=== PATIENT | female | born 1950 | race Caucasian/White ===

== ENCOUNTER → 2022-02-12 | Outpatient (CLI) | payer MEDICARE ==
[2022-02-14 11:05] LABS: Stool Occult Bld Immuno 1 Negative (NEGATIVE)
== END | disposition home or self-care (01) ==
LOC: LAB SHORT 15:30 → LAB 15:30
PROVIDERS: Internal Medicine
DX: D53.9 Nutritional anemia, unspecified (principal)
CPT/HCPCS: 82274

== ENCOUNTER → 2022-05-08 | Outpatient (CLI) | payer MEDICARE ==
[2022-05-08 18:50] LABS: Protein, Urine Random <5.0 mg/dL (0.0-11.9); Protein/Creat Ratio, Ur Random Unable to Calculate
== END ==
LOC: LAB SHORT 14:18 → LAB 14:18
PROVIDERS: Internal Medicine Nephrology
DX: N18.4 Chronic kidney disease, stage 4 (severe) (principal)
CPT/HCPCS: 82570; 84156

== ENCOUNTER → 2022-11-05 | Outpatient (CLI) | payer MEDICARE ==
[2022-11-07 14:43] LABS: Adenovirus F 40/41 Not Detected (NOT DETECT); Astrovirus Not Detected (NOT DETECT); Campylobacter Sp Not Detected (NOT DETECT); Cryptosporidium Not Detected (NOT DETECT); Cyclospora Cayetanensis Not Detected (NOT DETECT); E. Coli O157 Not Detected (NOT DETECT); Entamoeba Histolytica Not Detected (NOT DETECT); Enteroaggregative E. coli-EAEC Not Detected (NOT DETECT); Enteropathogenic E. coli-EPEC Not Detected (NOT DETECT); Enterotoxigenic E. coli-ETEC Not Detected (NOT DETECT); Giardia Lamblia Not Detected (NOT DETECT); Norovirus GI/GII Not Detected (NOT DETECT); Plesiomonas Shigelloides Not Detected (NOT DETECT); Rotavirus A Not Detected (NOT DETECT); Salmonella Sp Not Detected (NOT DETECT); Sapovirus Not Detected (NOT DETECT); Shiga Toxin-prod E. coli-STEC Not Detected (NOT DETECT); Shigella/Enteroin E. coli-EIEC Not Detected (NOT DETECT); Vibrio Cholerae Not Detected (NOT DETECT); Vibrio Sp Not Detected (NOT DETECT); Yersinia Enterocolitica Not Detected (NOT DETECT)
== END | disposition home or self-care (01) ==
LOC: LAB 08:30 → LAB SHORT 08:30
PROVIDERS: Family Medicine
DX: R19.7 Diarrhea, unspecified (principal)
CPT/HCPCS: 87507

== ENCOUNTER → 2023-01-14 | Outpatient (CLI) | payer MEDICARE ==
[2023-01-14 21:11] LABS: Protein, Urine Random 10.6 mg/dL (0.0-11.9)
[2023-01-14 21:12] LABS: Creatinine, Urine Random 73.8 mg/dL (27.00-270.00); Protein/Creat Ratio, Ur Random 0.1
== END | disposition home or self-care (01) ==
LOC: LAB 10:40 → LAB SHORT 10:40
PROVIDERS: Internal Medicine Nephrology
DX: N18.32 Chronic kidney disease, stage 3b (principal)
CPT/HCPCS: 82570; 84156

== ENCOUNTER 2023-01-26 10:17 | Emergency (ER) | payer MEDICARE ==
[~2023-01-26] VITALS: Ht 154.9 cm; Wt 77.1 kg
[2023-01-26] MEDS ORDERED: TRAM50 PO ×2 (11:00→11:01)
[2023-01-26] MEDS ORDERED: Cyclobenzaprine5 MG PO (11:00)
[2023-01-26 11:01] LABS: BASOPHILS ABSOLUTE AUTO 0.01 K/mm3 (0.00-0.23); BASOPHILS PERCENT AUTO 0 % (0-2); EOSINOPHILS ABSOLUTE AUTO 0.08 K/mm3 (0.00-0.68); EOSINOPHILS PERCENT AUTO 1 % (0-6); Hematocrit 30.7 % (33.0-51.0); Hemoglobin 10.5 g/dL (11.5-16.0); IMMATURE GRAN ABSOLUTE AUTO 0.01 K/mm3 (0.00-0.10); IMMATURE GRAN PERCENT AUTO 0 % (0-1); LYMPHOCYTES ABSOLUTE AUTO 1.83 K/mm3 (0.84-5.20); LYMPHOCYTES PERCENT AUTO 31 % (21-46); MONOCYTES ABSOLUTE AUTO 0.35 K/mm3 (0.16-1.47); MONOCYTES PERCENT AUTO 6 % (4-13); Mean Corpuscular HGB 31.6 pg (26.0-34.0); Mean Corpuscular HGB Conc 34.2 g/dL (31.5-36.5); Mean Corpuscular Volume 93 fL (80-100); Mean Platelet Volume 10.1 fL (9.1-12.4); NEUTROPHILS ABSOLUTE AUTO 3.58 K/mm3 (1.96-9.15); NEUTROPHILS PERCENT AUTO 61 % (41-73); Platelet Count 266 K/mm3 (150-400); RDW Coefficient Variation 12.3 % (11.7-14.2); RDW Standard Deviation 41.5 fL (35.1-46.3); Red Blood Cell Count 3.32 M/mm3 (3.80-5.20); White Blood Cell Count 5.86 K/mm3 (4.00-11.30)
[2023-01-26] MEDS ORDERED: AMLODIPINE BESYL5 MG PO (11:10)
[2023-01-26] MEDS ORDERED: METFORMIN HCL500 M3 PO (11:10)
[2023-01-26] MEDS ORDERED: VALSARTAN160 MG PO (11:11)
[2023-01-26] MEDS ORDERED: CHLO25B PO (11:11)
[2023-01-26 11:21] LABS: Albumin/Globulin Ratio 1.2 (0.8-1.8); Bilirubin, Total 0.3 mg/dL (0.1-1.0); Bun/Creatinine Ratio 24.6 (12.0-20.0); Calcium, Blood 9.2 mg/dL (8.5-10.1); Creatinine, Blood 1.26 mg/dL (0.40-1.00); Globulin, Blood 3.2 g/dL (2.2-4.0); Potassium, Blood 3.9 mmol/L (3.5-5.5); Total Protein, Blood 7.2 g/dL (6.4-8.2)
[2023-01-26] MEDS ORDERED: OXYC5 PO (12:12)
[2023-01-26] MEDS ORDERED: TIZA4 PO (12:12)
[2023-01-26 12:15] VITALS: BP 125/81
== END 2023-01-26 12:25 | disposition home or self-care (01) ==
LOC: ER 10:17
PROVIDERS: Student in an Organized Health Care Education/Training Program
DX: M62.830 Muscle spasm of back (principal); Z88.8 Allergy status to other drugs, medicaments and biological substances; Z79.899 Other long term (current) drug therapy; Z79.84 Long term (current) use of oral hypoglycemic drugs
CPT/HCPCS: 71046; 80053; 84484; 85025; 93005; 93010; 99284-25

== ENCOUNTER → 2024-04-30 | Outpatient (CLI) | payer MEDICARE ==
[~2024-04-30] MED LIST: AMLODIPINE BESYL5 MG PO; CHLO25B PO; Cyclobenzaprine5 MG PO; METFORMIN HCL500 M3 PO; OXYC5 PO; TIZA4 PO; TRAM50 PO; VALSARTAN160 MG PO
[2024-04-30 14:39] LABS: Source, Urine Clean Catch
[2024-04-30 19:09] LABS: Appearance, Urine Clear (Clear); Bilirubin, Urine Neg (Neg); Blood, Urine Neg (Neg); Color, Urine Yellow (P-Yellow); Glucose Qualitative, Urine Neg (Neg); Ketones, Urine Neg (Neg); Leukocyte Esterase, Urine Neg (Neg); Nitrite, Urine Neg (Neg); Protein, Urine Neg (Neg); Urobilinogen, Urine NORM (Normal)
[2024-04-30 19:31] LABS: Creatinine, Urine Random 69.2 mg/dL (27.00-270.00); Protein, Urine Random 8.1 mg/dL (0.0-11.9); Protein/Creat Ratio, Ur Random 0.1
== END | disposition home or self-care (01) ==
LOC: LAB 12:30 → LAB SHORT 12:30
PROVIDERS: Hospitalist
DX: I12.9 Hypertensive chronic kidney disease with stage 1 through stage 4 chronic kidney disease, or unspecified chronic kidney disease (principal); N18.32 Chronic kidney disease, stage 3b
CPT/HCPCS: 81003; 82570; 84156

== ENCOUNTER → 2024-07-13 | Outpatient (CLI) | payer MEDICARE ==
[2024-07-16 13:55] LABS: CALPROTECTIN,FECAL 68 ug/g (<=49)
[2024-07-17 11:12] LABS: PANCREATIC ELASTASE,FECAL >800 ug/g (>=100)
== END ==
LOC: LAB SHORT 12:40 → LAB 12:40
PROVIDERS: Family Medicine
DX: K52.9 Noninfective gastroenteritis and colitis, unspecified (principal)
CPT/HCPCS: 82653; 83993; 87338

== ENCOUNTER → 2024-08-10 | Outpatient (CLI) | payer MEDICARE ==
[2024-08-15 23:48] LABS: CALPROTECTIN,FECAL 200 ug/g (<=49)
== END ==
LOC: LAB SHORT 13:22 → LAB 13:22
PROVIDERS: Family Medicine
DX: K58.0 Irritable bowel syndrome with diarrhea (principal)
CPT/HCPCS: 83993

== ENCOUNTER 2025-04-20 08:26 | Day surgery (SDC) | payer MEDICARE ==
[~2025-04-20] VITALS: Ht 154.9 cm; Wt 76.9 kg
[2025-04-20 10:51] VITALS: BP 130/67
== END 2025-04-20 11:03 | disposition home or self-care (01) ==
LOC: ORSCSDS 08:26
PROVIDERS: Internal Medicine Gastroenterology
PROC: 0DB68ZX Excision of Stomach, Via Natural or Artificial Opening Endoscopic, Diagnostic (ICD-10-PCS; principal; 2025-04-20 09:30)
PROC: 0DBK8ZX Excision of Ascending Colon, Via Natural or Artificial Opening Endoscopic, Diagnostic (ICD-10-PCS; principal; 2025-04-20 09:30)
DX: K21.9 Gastro-esophageal reflux disease without esophagitis (principal); K44.9 Diaphragmatic hernia without obstruction or gangrene; D12.2 Benign neoplasm of ascending colon; K57.30 Diverticulosis of large intestine without perforation or abscess without bleeding; Z12.11 Encounter for screening for malignant neoplasm of colon; Z86.0100 Personal history of colon polyps, unspecified; I12.9 Hypertensive chronic kidney disease with stage 1 through stage 4 chronic kidney disease, or unspecified chronic kidney disease; N18.32 Chronic kidney disease, stage 3b; E88.89 Other specified metabolic disorders; J45.909 Unspecified asthma, uncomplicated; Z87.891 Personal history of nicotine dependence; Z79.84 Long term (current) use of oral hypoglycemic drugs; Z79.899 Other long term (current) drug therapy
CPT/HCPCS: 82947; 88305; 88342; J2704; J7120

== ENCOUNTER → 2025-04-29 | Outpatient (CLI) | payer MEDICARE ==
[2025-04-29 14:14] LABS: Source, Urine Voided
[2025-04-29 15:06] LABS: Bilirubin, Urine Neg (Neg); Color, Urine Yellow (P-Yellow); Glucose Qualitative, Urine 4+ (Neg); Ketones, Urine Neg (Neg); Leukocyte Esterase, Urine Neg (Neg); Protein, Urine Neg (Neg); Specific Gravity, Urine 1.010 (1.003-1.022); Urobilinogen, Urine NORM (Normal)
[2025-04-29 16:24] LABS: Creatinine, Urine Random 40.50 mg/dL (27.00-270.00)
[2025-04-29 16:26] LABS: Microalb/Creat Ratio UR, Rand Unable to Calculate mg/g (0.000-30.000); Microalbumin, Random Urine <5.000 mg/L (0.000-20.000)
== END | disposition home or self-care (01) ==
LOC: LAB SHORT 14:13 → LAB 14:13
PROVIDERS: Hospitalist
DX: I12.9 Hypertensive chronic kidney disease with stage 1 through stage 4 chronic kidney disease, or unspecified chronic kidney disease (principal); E11.22 Type 2 diabetes mellitus with diabetic chronic kidney disease; N18.32 Chronic kidney disease, stage 3b
CPT/HCPCS: 81003; 82043; 82570